=== PATIENT | female | born 1995 | race Caucasian/White ===

== ENCOUNTER 2021-08-16 14:46 | Emergency (ER) | payer OTHER ==
[2014-01-31 11:25] VITALS: BP 116/55
[~2021-08-16 14:46] MED LIST: BIRTH CONTROL
[2021-08-16] MEDS ORDERED: AMOXICILLIN/K CLAV 875/125MG TABLET. PO ONE (15:15)
[2021-08-16] MEDS ORDERED: HYDROcodone/APAP 5/325MG 1 TAB TABLET PO ONE (15:15)
[2021-08-16] MEDS ORDERED: HYDR-2155 PO (15:19)
[2021-08-16] MEDS ORDERED: AMOX1TAB61 PO (15:19)
--- NOTE | 2021-08-16 15:20 | PHYS DOC ---
Past History Past Medical History: Other (CHASITY MCKEON APRN) Past Surgical History: Other (CHASITY MCKEON APRN) Alcohol Use: Occasionally Drug Use: None (CHASITY MCKEON APRN) General Adult EDM: Chief Complaint: DENTAL PROBLEM HPI: HPI: Patient is a 26-year-old female who presents to the emergency department today for left lower dental pain. Patient reports that her symptoms started on Thursday. She followed up with her dentist on Thursday and they placed her on an antibiotic and gave her tramadol. She reports that she was unable to keep the antibiotic down as she cannot vomiting anytime she would take it. She called her dentist yesterday and they put her on amoxicillin and she is taken 24 hours of it. Patient presents to the emergency department because she only has 2 tablets of her tramadol left and is still requiring additional pain medication. Patient denies any vomiting after discontinuing the medication she denies any fevers. (CHASITY MCKEON APRN) Review of Systems: Review of Systems: Constitutional: HPI HENT: See HPI GI: See HPI Integument: Ports swelling to her left cheek (CHASITY MCKEON APRN) Allergies: Allergies: Allergies Coded Allergies Type Severity Reaction Last Updated Verified No Known Drug Allergies 01/31/14 No (CHASITY MCKEON APRN) Physical Exam: PE: Constitutional: Well developed, well nourished, no acute distress, non-toxic appearance. [] HENT: Normocephalic, atraumatic, bilateral external ears normal, oropharynx moist, no oral exudates, uvula midline, no trismus, no phonation changes, patient maintaining secretions, left lower jaw swelling, but lower gum swelling proximal to 18th to this no area of fluctuance nose normal. [] Eyes: PERRL, EOMI, conjunctiva normal, no discharge. [] Neck: Normal range of motion, no tenderness, supple, no stridor. [] Cardiovascular: Normal peripheral perfusion Lungs & Thorax: Normal work of breathing, no tachypnea Abdomen: Soft and flat Skin: Warm, dry, no erythema, no rash. [] Back: No tenderness, normal range of motion Extremities: No tenderness, no cyanosis, no clubbing, ROM intact, no edema. [] Neurologic: Alert and oriented X 3, normal motor function, normal sensory function, no focal deficits noted. [] Psychologic: Affect normal, judgement normal, mood normal. [] (CHASITY MCKEON APRN) EKG: EKG: [] (CHASITY MCKEON APRN) Radiology/Procedures: Radiology/Procedures: [] (CHASITY MCKEON APRN) Heart Score: C/O Chest Pain: N/A Risk Factors: Risk Factors: DM, Current or recent (<one month) smoker, HTN, HLP, family history of CAD, obesity. Risk Scores: Score 0 - 3: 2.5% MACE over next 6 weeks - Discharge Home Score 4 - 6: 20.3% MACE over next 6 weeks - Admit for Clinical Observation Score 7 - 10: 72.7% MACE over next 6 weeks - Early Invasive Strategies (CHASITY MCKEON APRN) Course & Med Decision Making: Course & Med Decision Making Pertinent Labs and Imaging studies reviewed. (See chart for details) [] Patient presents to the emergency department for dental pain. Patient does have a dental infection, treated with an antibiotic. She is placed on amoxicillin but this will be changed to Augmentin for better coverage. Patient will also be discharged home with pain medication. She is advised to follow-up with her dentist that she will likely need to have this tooth pulled. I discussed with patient all findings and diagnostic testing as well as the need to follow-up with PCP for further evaluation and treatment or return to the ER if any new or worsening symptoms. Strict return precautions were also discussed at length. Patient voiced understanding and agreement with the plan. Patient is hemodynamically stable at the time of disposition. (CHASITY MCKEON APRN) Dragon Disclaimer: Dragon Disclaimer: This electronic medical record was generated, in whole or in part, using a voice recognition dictation system. (CHASITY MCKEON APRN) Attending Co-Sign The patient was seen and interviewed as well as examined at the bedside. The chart was reviewed. The case was discussed. Agree with the plan of care. (VANNESA SPAULDING DO) Departure Departure: Impression: Primary Impression: Pain, dental Disposition: HOME / SELF CARE / HOMELESS Condition: GOOD Referrals: HAILY DUVAL (PCP) Patient Instructions: Dental Abscess, Dental Pain Additional Instructions: You were seen in the emergency department today for dental pain and infection. Please discontinue the amoxicillin and start this new antibiotic. He also being discharged home with pain medication. Take this medication as directed. This medication may cause sedation so do not take when you need to be alert, driving a vehicle or with alcohol. You can take ibuprofen or naproxen at home also. Follow-up with your dentist as soon as possible, please call their office upon discharge. Return to the emergency department if you develop worsening of your pain or swelling, difficulty maintaining your secretions, shortness of breath, high fevers refractory to treatment, intractable nausea or vomiting. Scripts Hydrocodone Bit/Acetaminophen (HYDROCODONE-APAP 5-325 ) 1 Each Tablet 1 TAB PO PRN Q6HRS PRN for PAIN for 2 Days, #8 TAB 0 Refills Prov: CHASITY MCEKON APRN 08/16/21 Amoxicillin/Potassium Clav (AUGMENTIN 875-125 TABLET) 1 Each Tablet 1 TAB PO BID for INFECTION for 10 Days, #20 TAB 0 Refills Prov: CHASITY MCKEON APRN 08/16/21 CHASITY MCKEON APRN Aug 16, 2021 15:20 VANNESA SPAULDING DO Aug 17, 2021 07:57
== END 2021-08-16 15:47 | disposition home or self-care (01) ==
LOC: ER 14:46
DX: K08.89 Other specified disorders of teeth and supporting structures (principal)
CPT/HCPCS: 99283

== ENCOUNTER 2021-08-27 09:15 | Emergency (ER) | payer OTHER ==
[~2021-08-27] VITALS: Ht 165.1 cm; Wt 56.8 kg
[~2021-08-27 09:15] MED LIST changes: +AMOX1TAB61 PO; +HYDR-2155 PO
[2021-08-27 09:21] VITALS: BP 136/72
[2021-08-27] MEDS ORDERED: IV NORMAL SALINE 1,000ML 1,000 ML IV ONE (09:30)
--- NOTE | 2021-08-27 09:48 | PHYS DOC ---
Past History Past Medical History: Other Past Surgical History: Other Alcohol Use: Occasionally Drug Use: None General Adult EDM: Chief Complaint: ABDOMINAL PAIN HPI: HPI: 26-year-old female presents with left lower quadrant abdominal pain and diarrhea. She started to have cramping abdominal pain at work last night. She was unable to go to sleep overnight due to the waves of cramping. She has had 3 episodes of watery diarrhea today. Denies vomiting. No fever or chills. She is nearly done with 10 days of Augmentin from a dental infection. She had her first COVID-vaccine 1 week ago. Review of Systems: Review of Systems: Constitutional: Denies fever or chills Eyes: Denies change in visual acuity HENT: Denies nasal congestion or sore throat Respiratory: Denies cough or shortness of breath Cardiovascular: Denies chest pain or edema GI: Lower abdominal pain, nausea, diarrhea : Denies dysuria Musculoskeletal: Denies back pain or joint pain Integument: Denies rash Neurologic: Denies headache, focal weakness or sensory changes Endocrine: Denies polyuria or polydipsia Lymphatic: Denies swollen glands Psychiatric: Denies depression or anxiety Current Medications: Current Meds: Current Medications Medications (Trade) Dose Ordered Sig/Mckenna Start Time Stop Time Status Last Admin Dose Admin Sodium Chloride 1,000 ml @ 1,000 mls/hr 1X ONCE 08/27/21 09:30 08/27/21 10:29 Allergies: Allergies: Allergies Coded Allergies Type Severity Reaction Last Updated Verified No Known Drug Allergies 01/31/14 No Physical Exam: PE: Constitutional: Well developed, well nourished, no acute distress, non-toxic appearance. [] HENT: Normocephalic, atraumatic, bilateral external ears normal, oropharynx moist, no oral exudates, nose normal. [] Eyes: PERRLA, EOMI, conjunctiva normal, no discharge. [] Neck: Normal range of motion, no tenderness, supple, no stridor. [] Cardiovascular: Heart rate regular rhythm, no murmur [] Lungs & Thorax: Bilateral breath sounds clear to auscultation [] Abdomen: Bowel sounds normal, soft, left lower quadrant and periumbilical tenderness, no masses, no pulsatile masses. [] Skin: Warm, dry, no erythema, no rash. [] Back: No tenderness, no CVA tenderness. [] Extremities: No tenderness, no cyanosis, no clubbing, ROM intact, no edema. [] Neurologic: Alert and oriented X 3, normal motor function, normal sensory function, no focal deficits noted. [] Psychologic: Affect normal, judgement normal, mood normal. [] Current Patient Data: Labs: Laboratory Tests Test 08/27/21 08:46 POC Urine HCG, Qualitative hcg negative (Negative) Vital Signs: Vital Signs Date Time Temp Pulse Resp B/P (MAP) Pulse Ox O2 Delivery O2 Flow Rate FiO2 08/27/21 09:21 97.8 93 18 136/72 (93) 97 Room Air EKG: EKG: [] Radiology/Procedures: Radiology/Procedures: [] Impressions: CT ABDOMEN+PELVIS W History: Left lower quadrant abdominal pain. Comparison: None. Technique: CT of the abdomen and pelvis with intravenous contrast. Findings: The lung bases are clear. Normal heart. No pleural or pericardial effusion. The liver, gallbladder, pancreas, spleen, and adrenal glands are unremarkable. There is a left upper pole 1.1 cm renal cyst. No hydronephrosis or nephrolithiasis. The stomach is unremarkable. The proximal small bowel appears normal. Normal appendix. Wall thickening of the colon from the cecum, through the transverse colon. The proximal descending colon is more normal in appearance however the distal descending and sigmoid colon also demonstrate wall thickening. The uterus, adnexa and bladder are unremarkable. There is small pelvic free fluid. No intra-abdominal free air. Vasculature is within normal limits. No adenopathy. Osseous structures and soft tissues are unremarkable. Impression: 1. Wall thickening of the colon greatest at the cecum, ascending and transverse colon, also involving the sigmoid colon concerning for inflammatory bowel disease. Alternately, infectious colitis could have a similar appearance. ------ Exposure: One or more of the following individualized dose reduction techniques were utilized for this examination: 1. Automated exposure control 2. Adjustment of the mA and/or kV according to patient size 3. Use of iterative reconstruction technique. Electronically signed by: Victoriano Ford MD (08/27/2021 11:26 AM) [id number] DICTATED AND SIGNED BY: VICTORIANO FORD MD DATE: 08/27/21 1121 CC: VANNESA SPAULDING DO; HAILY DUVAL ~ Heart Score: C/O Chest Pain: N/A Risk Factors: Risk Factors: DM, Current or recent (<one month) smoker, HTN, HLP, family history of CAD, obesity. Risk Scores: Score 0 - 3: 2.5% MACE over next 6 weeks - Discharge Home Score 4 - 6: 20.3% MACE over next 6 weeks - Admit for Clinical Observation Score 7 - 10: 72.7% MACE over next 6 weeks - Early Invasive Strategies Course & Med Decision Making: Course & Med Decision Making Pertinent Labs and Imaging studies reviewed. (See chart for details) The patient's labs are unremarkable. Her CT of the abdomen pelvis shows wall thickening of the colon which could be inflammatory bowel disease or infectious colitis. The patient has been on Augmentin for 10 days. As mentioned infectious colitis less likely. I have advised she follow-up with her primary care physician and consider GI consult. She is stable for discharge at this time. [] Dragon Disclaimer: Dragon Disclaimer: This electronic medical record was generated, in whole or in part, using a voice recognition dictation system. Departure Departure: Impression: Primary Impression: Inflammatory bowel diseases (IBD) Disposition: HOME / SELF CARE / HOMELESS Condition: STABLE Referrals: HAILY DUVAL (PCP) Additional Instructions: Your CT scan suggest the possibility of inflammatory bowel disease. 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 Scripts Hydrocodone/Acetaminophen (Hydrocodone-Acetamin 5-325 mg) 1 Each Tablet 1 EACH PO Q4-6HRS PRN for PAIN, #10 TAB Prov: VANNESA SPAULDING DO 08/27/21 VANNESA SPAULDING DO August 27, 2021 09:48
[2021-08-27] MEDS ORDERED: IOHEXOL 300 MG/ML 75 ML VIAL. IV ONE (10:00)
[2021-08-27 10:05] LABS: BACTERIA,URINE 0 /HPF (0-FEW); CLARITY,URINE HAZY; COLOR,URINE YELLOW; GLUCOSE,URINE NEG (NEG); NITRITE,URINE NEG (NEG); SQUAMOUS EPITHELIAL CELL,UR MANY /LPF; UROBILINOGEN,URINE 0.2 mg/dL (0.2 mg/dL)
[2021-08-27 10:05] LABS: BASO % 0 % (0-3); EOS # 0.1 x10^3/uL (0.0-0.7); EOS % 1 % (0-3); HEMATOCRIT 39.2 % (36.0-47.0); HEMOGLOBIN 13.1 g/dL (12.0-15.5); LYMPH # 1.8 x10^3/uL (1.0-4.8); LYMPH % 16 % (24-48); MEAN CORPUSCULAR HEMOGLOBIN 31 pg (25-35); MEAN CORPUSCULAR HGB CONC 34 g/dL (31-37); MEAN CORPUSCULAR VOLUME 91 fL (79-100); MONO # 0.7 x10^3/uL (0.0-1.1); MONO % 6 % (0-9); NEUT # 8.4 x10^3uL (1.8-7.7); NEUT % 77 % (31-73); PLATELET COUNT 423 x10^3/uL (140-400); RED BLOOD COUNT 4.31 x10^6/uL (3.50-5.40); RED CELL DISTRIBUTION WIDTH 14.2 % (11.5-14.5); WHITE BLOOD COUNT 10.9 x10^3/uL (4.0-11.0)
[2021-08-27 10:17] LABS: CALCIUM 8.9 mg/dL (8.5-10.1); CREATININE 0.8 mg/dL (0.6-1.0); GFR 85.4; POTASSIUM 3.5 mmol/L (3.5-5.1)
[2021-08-27 10:23] LABS: ALBUMIN 3.9 g/dL (3.4-5.0); TOTAL BILIRUBIN 0.9 mg/dL (0.2-1.0); TOTAL PROTEIN 7.7 g/dL (6.4-8.2)
--- NOTE | 2021-08-27 11:29 | RAD ---
CT ABDOMEN+PELVIS W History: Left lower quadrant abdominal pain. Comparison: None. Technique: CT of the abdomen and pelvis with intravenous contrast. Findings: The lung bases are clear. Normal heart. No pleural or pericardial effusion. The liver, gallbladder, p ancreas, spleen, and adrenal glands are unremarkable. There is a left upper pole 1.1 cm renal cyst. N o hydronephrosis or nephrolithiasis. The stomach is unremarkable. The proximal small bowel appears normal. Normal appendix. Wall thickenin g of the colon from the cecum, through the transverse colon. The proximal descending colon is more no rmal in appearance however the distal descending and sigmoid colon also demonstrate wall thickening. The uterus, adnexa and bladder are unremarkable. There is small pelvic free fluid. No intra-abdominal free air. Vasculature is within normal limits. N o adenopathy. Osseous structures and soft tissues are unremarkable. Impression: 1. Wall thickening of the colon greatest at the cecum, ascending and transverse colon, also involvin g the sigmoid colon concerning for inflammatory bowel disease. Alternately, infectious colitis could have a similar appearance. ------ Exposure: One or more of the following individualized dose reduction techniques were utilized for thi s examination: 1. Automated exposure control 2. Adjustment of the mA and/or kV according to patient size 3. Use of iterative reconstruction technique. Electronically signed by: Victoriano Ford MD (08/27/2021 11:26 AM) [id number]
[2021-08-27] MEDS ORDERED: HYDR-2759 PO (12:28)
== END 2021-08-27 12:35 | disposition home or self-care (01) ==
LOC: ER 09:15
DX: K58.9 Irritable bowel syndrome, unspecified (principal)
CPT/HCPCS: 36415; 74177; 80053; 81001; 81025; 85025; 87086; 87106; 96360; 96361; 99285; J7030; Q9967